=== PATIENT | female | born 1980 | race American Indian/Alaskan Native ===

== ENCOUNTER 2017-12-07 13:54 | Emergency (ER) | payer SELFPAY ==
[2017-12-07] MEDS ORDERED: ASPIRIN PO ONE (14:22)
[2017-12-07 15:43] LABS: Basophils # (Auto) 0.1 K/mm3 (0.0-0.1); Basophils % (Auto) 1.7 % (0.0-1.8); Eosinophils # (Auto) 0.1 K/mm3 (0.0-0.4); Eosinophils % (Auto) 0.9 % (0.0-4.3); Hematocrit 32.9 % (30.3-42.9); Hemoglobin 10.2 gm/dl (10.1-14.3); Lymphocytes # (Auto) 2.5 K/mm3 (1.2-5.4); Lymphocytes % (Auto) 35.5 % (13.4-35.0); Mean Corpuscular HGB Conc 31 % (30-34); Monocytes # (Auto) 0.5 K/mm3 (0.0-0.8); Monocytes % (Auto) 6.8 % (0.0-7.3); Platelet Count 487 K/mm3 (140-440); Red Blood Count 4.94 M/mm3 (3.65-5.03); Red Cell Distribution Width 18.3 % (13.2-15.2)
[2017-12-07 15:51] LABS: Mean Corpuscular Hemoglobin 21 pg (28-32); Mean Corpuscular Volume 67 fl (79-97)
[2017-12-07 15:55] LABS: BUN/Creatinine Ratio 12; Blood Urea Nitrogen 7 mg/dL (7-17); Calcium 9.3 mg/dL (8.4-10.2); Hemolysis Index 5
[2017-12-07] MEDS ORDERED: TYLENOL PO ONE (20:13)
--- NOTE | 2017-12-07 20:16 | Emergency Department Report ---
ED Chest Pain HPI - General Chief Complaint: Chest Pain Stated Complaint: SEIZURES/CHEST PAIN Time Seen by Provider: 12/07/17 20:03 Source: patient Mode of arrival: Ambulatory Limitations: No Limitations - History of Present Illness Initial Comments: 37-year-old Michelle female presents to the emergency department with 2 complaints. First, the patient says that she had a seizure last night. However she did not seek any medical attention at that time. She says that she does have some undiagnosed seizure history but does not take any medications for it. Secondly, the patient complains of some midsternal to left-sided chest pain that is a tightness sensation and a sharp pain down the left arm. This also has been going on since last night. She has not taken anything for her symptoms. Presentation. She has a past medical history of hypertension, borderline diabetes asthma, sickle cell trait and G6PD. The patient says that she is currently homeless but staying with a friend. She does not have a primary care physician. She denies any tobacco or illicit drug use or abuse. Severity scale (0 -10): 4 - Related Data Previous Rx's Medication Instructions Recorded Last Taken Type Miconazole/Cleanser 17 On Wipe 1 each VG QDAY #1 kit 12/07/17 Unknown Rx [Monistat 3 Combo Pack] Allergies Allergy/AdvReac Type Severity Reaction Status Date / Time NSAIDS (Non-Steroidal AdvReac Bleeding Verified 12/07/17 14:21 Anti-Inflamma Heart Score - HEART Score History: Slightly suspicious EKG: Normal Age: < 45 Risk factors: 1-2 risk factors Troponin: < normal limit HEART Score: 1 - Critical Actions Critical Actions: 0-3 pts:0.9-1.7%risk of adverse cardiac event.Candidate for discharge ED Review of Systems ROS: Stated complaint: SEIZURES/CHEST PAIN Other details as noted in HPI Comment: All other systems reviewed and negative Constitutional: denies: chills, fever Eyes: denies: eye pain, eye discharge, vision change ENT: denies: ear pain, throat pain Respiratory: denies: cough, shortness of breath, wheezing Cardiovascular: chest pain. denies: palpitations Gastrointestinal: denies: abdominal pain, nausea, diarrhea Genitourinary: denies: urgency, dysuria, discharge Musculoskeletal: denies: back pain, joint swelling Skin: denies: rash, lesions Neurological: headache, other (seizure) ED Past Medical Hx - Past Medical History Previous Medical History?: Yes Hx Hypertension: Yes Hx Diabetes: Yes Hx Seizures: Yes Hx Asthma: Yes Additional medical history: G6PD deficiency, anemia, sickle cell trait. - Surgical History Past Surgical History?: Yes Additional Surgical History: C section - Social History Smoking Status: Never Smoker Substance Use Type: None - Medications Home Medications: Home Medications Medication Instructions Recorded Confirmed Last Taken Type Miconazole/Cleanser 17 On Wipe 1 each VG QDAY #1 kit 12/07/17 Unknown Rx [Monistat 3 Combo Pack] ED Physical Exam - General Limitations: No Limitations - Other Other exam information: GENERAL: The patient is well-developed well-nourished. HENT: Normocephalic. Atraumatic. Patient has moist mucous membranes. EYES: Extraocular motions are intact. Pupils equal reactive to light bilaterally. NECK: Supple. Trachea is midline. CHEST/LUNGS: Clear to auscultation. There is no respiratory distress noted. HEART/CARDIOVASCULAR: Regular. There is no tachycardia. There is no murmur. ABDOMEN: Abdomen is soft, nontender. Patient has normal bowel sounds. Obese habitus. SKIN: Skin is warm and dry. NEURO: The patient is awake, alert, and oriented. The patient is cooperative. The patient has no focal neurologic deficits. The patient has normal speech. Cranial nerves II through XII grossly intact. MUSCULOSKELETAL: There is no tenderness or deformity. There is no limitation range of motion. There is no evidence of acute injury. ED Course Vital Signs 12/07/17 12/07/17 12/07/17 14:14 19:18 20:00 Temperature 98.7 F 97.8 F Pulse Rate 88 80 64 Respiratory 16 16 8 L Rate Blood Pressure 159/87 155/80 121/70 Blood Pressure [Left] O2 Sat by Pulse 98 97 100 Oximetry 12/07/17 12/07/17 20:03 21:00 Temperature 98.2 F Pulse Rate 68 80 Respiratory 12 9 L Rate Blood Pressure 115/64 Blood Pressure 121/70 [Left] O2 Sat by Pulse 100 100 Oximetry ED Medical Decision Making - Lab Data Result diagrams: 12/07/17 15:13 12/07/17 15:13 - EKG Data -: EKG Interpreted by [place] EKG shows normal: sinus rhythm, axis, intervals, QRS complexes, ST-T waves Rate: normal - EKG Data When compared to previous EKG there are: previous EKG unavailable Interpretation: normal EKG Critical care attestation.: If time is entered above; I have spent that time in minutes in the direct care of this critically ill patient, excluding procedure time. ED Disposition Clinical Impression: Yeast infection, Seizure Chest pain Qualifiers: Chest pain type: unspecified Qualified Code(s): R07.9 - Chest pain, unspecified Disposition: TO HOME OR SELFCARE Is pt being admited?: No Condition: Stable Instructions: Chest Pain (ED), Recurrent Seizures Adult (ED), Vulvovaginal Candidiasis (ED) Additional Instructions: Please follow up with a primary care physician in the next few days. I have given a referral for a local elementary summer school teacher, Dr. Cardona, to follow up regarding your chest pain. I have given you a referral for a local neurologist, Dr. Warren, to follow up regarding your seizure history. Return to the emergency department immediately with any return of your symptoms, with any acute distress. Prescriptions: Miconazole/Cleanser 17 On Wipe [Monistat 3 Combo Pack] 1 each VG QDAY #1 kit Referrals: HARRIS WARREN MD [Staff Physician] - WINSTON ALFARO MD [Staff Physician] - [facility] [Outside] - [facility] Time of Disposition: 22:20
--- NOTE | 2017-12-07 21:42 | XRay Report ---
FINAL REPORT EXAM: XR CHEST 1V AP HISTORY: CP TECHNIQUE: upright single view chest PRIORS: None. FINDINGS: Cardiac and mediastinal contours are unremarkable. No focal pulmonary infiltrate is identified. No pleural fluid collection seen. Pulmonary vasculature is unremarkable. IMPRESSION: Negative single-view chest
[2017-12-07] MEDS ORDERED: DIFLUCAN PO ONE (21:58)
[2017-12-07 23:12] VITALS: BP 136/69
== END 2017-12-07 23:13 | disposition home or self-care (01) ==
LOC: ED 13:54
DX: B37.9 Candidiasis, unspecified (principal); R56.9 Unspecified convulsions; R07.89 Other chest pain; I10 Essential (primary) hypertension; E11.9 Type 2 diabetes mellitus without complications; J45.909 Unspecified asthma, uncomplicated; Z86.2 Personal history of diseases of the blood and blood-forming organs and certain disorders involving the immune mechanism; Z91.010 Allergy to peanuts; Z88.8 Allergy status to other drugs, medicaments and biological substances
CPT/HCPCS: 36415; 71045; 80048; 84484; 84703; 85025; 85379; 93005; 93010

== ENCOUNTER 2018-10-10 14:54 | Emergency (ER) | payer MEDICAID ==
--- NOTE | 2018-10-10 15:40 | Emergency Department Report ---
Blank Doc - Documentation Documentation: This is a 38-year-old female that presents with right shoulder pain with radia tion to right lower arm. Denies any injuries. This initial assessment/diagnostic orders/clinical plan/treatment(s) is/are subject to change based on patient's health status, clinical progression and re- assessment by fellow clinical providers in the ED. Further treatment and workup at subsequent clinical providers discretion. Patient/guardians urged not to elope from the ED as their condition may be serious if not clinically assessed and managed. Initial orders include: 1- Patient sent to [facility] for further evaluation and treatment 2- xray
[2018-10-10 15:42] VITALS: BP 122/63
[2018-10-10] MEDS ORDERED: NORCO 10/325 PO ONE (15:59)
--- NOTE | 2018-10-10 16:10 | Emergency Department Report ---
HPI - General Chief Complaint: Shoulder Injury Time Seen by Provider: 10/10/18 15:39 - HPI HPI: She is a morbidly obese 38-year-old who comes to the ER complaining of right shoulder pain that has started to occur yesterday while she was working. Patient is so large it is hard to examine her arm/shoulder given the adipose tissue. Patient does have a significant medical history including sickle cell trait, G6PD deficiency, diabetes type 2, asthma, seizure disorder. Patient is on metformin and iron at home. Her last menstrual cycle was 420: She's had a tubal in the past. Patient denies any chest pain or shortness of breath. She states that her blood sugars have been controlled. She denies any trauma or known insult that would make her shoulder started to hurt. She has tried nothing at home to make the pain go away. Movement aggravates the arm. ED Past Medical Hx - Past Medical History Hx Hypertension: Yes Hx Diabetes: Yes Hx Seizures: Yes Hx Asthma: Yes Additional medical history: G6PD deficiency, anemia, sickle cell trait. - Surgical History Past Surgical History?: Yes Additional Surgical History: C section - Family History Family history: no significant - Social History Smoking Status: Never Smoker Substance Use Type: Alcohol - Medications Home Medications: Home Medications Medication Instructions Recorded Confirmed Last Taken Type Cyclobenzaprine [Flexeril] 10 mg PO TID PRN #10 tablet 10/10/18 Unknown Rx ED Review of Systems ROS: Stated complaint: RT ARM PAIN Other details as noted in HPI Comment: All other systems reviewed and negative Physical Exam - Physical Exam Vital Signs: Vital Signs 10/10/18 15:40 Temperature 98 F Pulse Rate 78 Respiratory 18 Rate Blood Pressure 122/63 Blood Pressure 122/63 [Right] O2 Sat by Pulse 97 Oximetry Physical Exam: - Head Head exam: Present: atraumatic, normocephalic - Eye Eye exam: Present: normal appearance, EOMI. Absent: nystagmus - ENT ENT exam: Present: normal exam, normal orophraynx, mucous membranes moist, normal external ear exam, no lymphadenopathy - Neck Neck exam: Present: normal inspection, full ROM. Absent: tenderness, meningismus - Respiratory Respiratory exam: Present: normal lung sounds bilaterally. Absent: respiratory distress, wheezes, rales, rhonchi, stridor, chest wall tenderness, accessory muscle use, decreased breath sounds, prolonged expiratory - Cardiovascular Cardiovascular Exam: Present: regular rate, normal rhythm, normal heart sounds. Absent: bradycardia, tachycardia, irregular rhythm, systolic murmur, diastolic murmur, rubs, gallop, JVD, edema - GI/Abdominal GI/Abdominal exam: Present: soft, non tender on light and deep palpation. Absent: distended, tenderness, guarding, rebound, rigid, pulsatile mass - Rectal Rectal exam: Present: deferred - Extremities Exam Extremities exam: Present: normal inspection, full ROM, other (2+ pulses noted in the bilateral upper extremities. Bilateral lower extremities with 2+ DP bilateral. RUE with full ROM but limited with pain. Exam limited by obesity. Neurovasc intact. - Back Exam Back exam: Present: normal inspection, full ROM. Absent: tenderness, CVA tenderness (R), CVA tenderness (L), paraspinal tenderness, vertebral tenderness - Neurological Exam Neurological exam: Present: alert, oriented X3, normal gait, other (Extraocular movements intact. Tongue midline. No facial droop. Facial sensation intact to light touch in the V1, V2, V3 distribution bilaterally. 5 and 5 strength in 4 extremities.. Sensation is intact to light touch in 4 extremities.). Absent: motor sensory deficit - Psychiatric Psychiatric exam: normal affect and mood - Skin Skin exam: Present: warm, dry, intact, normal color. 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 dc home with NSAID and pcp follow up. Critical care attestation.: If time is entered above; I have spent that time in minutes in the direct care of this critically ill patient, excluding procedure time. ED Disposition Clinical Impression: Muscle strain, Morbid obesity, Diabetes, G6PD deficiency Disposition: DC-01 TO HOME OR SELFCARE Is pt being admited?: No Does the pt Need Aspirin: No Condition: Stable Instructions: Muscle Strain (ED), Diabetes Mellitus Type 2 in Adults (ED) Additional Instructions: DIET TOLERATED MEDS ORDERED TODAY IN ER FOLLOW INSTRUCTIONS ON THE BOTTLE FOLLOW UP PCP WITHIN 48 HOURS TO ENSURE YOU ARE GETTING BETTER ACTIVITY TOLERATED MOTRIN OR TYLENOL FOR PAIN OR FEVER RETURN TO THE ER FOR WORSENING SYMPTOMS NOT RELIEVED BY YOUR MEDICATIONS. warm compresses may provide some relief Referrals: YASHIRA DUQUE MD [Primary Care Provider] - 3-5 Days Forms: Work/School Release Form(ED) Time of Disposition: 16:54
--- NOTE | 2018-10-10 17:08 | XRay Report ---
PROCEDURE: XR SHOULDER 2+V RT TECHNIQUE: Right shoulder 3 views HISTORY: shoulder pain COMPARISONS: FINDINGS: No fracture identified. No dislocation seen. Joint spaces are within normal limits. Adjacent bony and soft tissue structures are unremarkable. IMPRESSION: Negative shoulder series. This document is electronically signed by Jerome Hill MD., Oct 10 2018 05:06:12 PM ET
--- NOTE | 2018-10-10 17:44 | Vascular Lab Report ---
PROCEDURE: VL VENOUS DUPLEX UE RT TECHNIQUE: Ultrasound deep venous system right upper extremity with pulsed and color Doppler evaluat ion HISTORY: pain COMPARISONS: FINDINGS: Ultrasound of the deep venous system right upper extremity from the subclavian through the brachiocep halic and basilic veins demonstrates normal compressibility and sonographic appearance. There is norm al vascular flow and waveform on pulsed and color Doppler evaluation. IMPRESSION: No evidence for deep venous thrombosis. This document is electronically signed by Jerome Hill MD., Oct 10 2018 05:42:07 PM ET
--- NOTE | 2018-10-10 18:24 | Ultrasound Report ---
PROCEDURE: Right arm ultrasound. TECHNIQUE: Real-time imaging was performed from the shoulder to the distal forearm. HISTORY: Pain. COMPARISONS: None. FINDINGS: There are no definite abnormal masses or fluid collections identified. IMPRESSION: No significant abnormality. This document is electronically signed by Marek Gomez MD., Oct 10 2018 06:22:46 PM ET
== END 2018-10-10 17:20 | disposition home or self-care (01) ==
LOC: ED 14:54
DX: S46.911A Strain of unspecified muscle, fascia and tendon at shoulder and upper arm level, right arm, initial encounter (principal); E11.9 Type 2 diabetes mellitus without complications; E66.01 Morbid (severe) obesity due to excess calories; Z68.43 Body mass index [BMI] 50.0-59.9, adult; D55.0 Anemia due to glucose-6-phosphate dehydrogenase [G6PD] deficiency; I10 Essential (primary) hypertension; J45.909 Unspecified asthma, uncomplicated; Z91.010 Allergy to peanuts; Z88.7 Allergy status to serum and vaccine; Z79.84 Long term (current) use of oral hypoglycemic drugs; W22.8XXA Striking against or struck by other objects, initial encounter; Y93.89 Activity, other specified; Y92.69 Other specified industrial and construction area as the place of occurrence of the external cause; Y99.8 Other external cause status
CPT/HCPCS: 99284